=== PATIENT | female | born 2000 | race Caucasian/White ===

== ENCOUNTER 2025-08-18 21:39 | Emergency (ER) | payer BC ==
[2025-08-18] MEDS ORDERED: HYDROcodone/Acetaminophen 5/325 mg Tablet ONE (22:02)
[2025-08-18] MEDS ORDERED: Ketorolac Tromethamine 30 MG (1 mL) VIAL ONE (22:02)
[2025-08-18] MEDS ORDERED: Amoxicillin/Potassium Clav 875 MG TAB ONE (22:02)
[2025-08-18] MEDS ORDERED: HYDROmorphone 0.5 MG/0.5 ML SYRINGE ONE (22:51)
[2025-08-18] MEDS ORDERED: Dexamethasone 10 MG/ML VIAL ONE (22:51)
== END 2025-08-18 23:57 | disposition home or self-care (01) ==
LOC: BURERS 21:39
DX: K08.89 Other specified disorders of teeth and supporting structures (principal); K03.81 Cracked tooth; F17.290 Nicotine dependence, other tobacco product, uncomplicated; Z75.3 Unavailability and inaccessibility of health-care facilities
CPT/HCPCS: 96372; 96374; 96375; J1100; J1171; J1885